=== PATIENT | female | born 1960 | race Caucasian/White ===

== ENCOUNTER 2018-01-23 16:38 | Emergency (ER) | payer OTHER ==
[~2018-01-23] VITALS: Ht 167.6 cm; Wt 77.1 kg
[~2018-01-23 16:38] MED LIST: ALBUD PO; BEN10I IM; CLONIDINE0.1 MG PO; DONLUD PO; DUL10S RC; IBUPROFEN PO; INSR SQ; MOM PO; MORPHINE SULFAT15 MG PO; MP PO; OXYCODONE HYDROC5 M2 PO; RISPERIDONE2 MG PO; ROB750 PO; TYLENOL PO; ZES10 PO; ZOC10 PO
[2018-01-23 16:42] VITALS: Ht 167.6 cm; Wt 77.1 kg
[2018-01-23 19:56] VITALS: BP 99/72
== END 2018-01-23 19:56 | disposition home or self-care (01) ==
LOC: ED 16:38
DX: R51 Headache (principal); I10 Essential (primary) hypertension; E11.9 Type 2 diabetes mellitus without complications; Z88.5 Allergy status to narcotic agent; Z88.6 Allergy status to analgesic agent; Z88.8 Allergy status to other drugs, medicaments and biological substances; Z98.890 Other specified postprocedural states
CPT/HCPCS: J1170; Q0162